=== PATIENT | male | born 1940 | race Caucasian/White ===

== ENCOUNTER 2017-07-21 17:02 | Emergency (ER) | payer MEDICARE, BC ==
[2017-07-21 22:46] LABS: ADD MAN DIFF? NO
[2017-07-21 22:48] LABS: BASOPHIL # 0.1 10^3/ul (0.0-0.1); BASOPHILS % 0.8 % (0.0-2.0); EOSINOPHILS # 0.2 10^3/ul (0.0-0.5); EOSINOPHILS % 3.3 % (0.0-7.0); HEMATOCRIT 36.7 % (42.0-52.0); LYMPHOCYTES # 2.7 10^3/ul (0.8-2.9); LYMPHOCYTES % 37.3 % (15.0-51.0); MEAN CORPUSCULAR HEMOGLOBIN 29.9 pg (29.0-33.0); MEAN CORPUSCULAR HGB CONC 32.7 g/dl (32.0-37.0); MEAN CORPUSCULAR VOLUME 91.3 fl (82.0-101.0); MEAN PLATELET VOLUME 10.9 fl (7.4-10.4); MONOCYTE # 0.7 10^3/ul (0.3-0.9); MONOCYTES % 9.5 % (0.0-11.0); NEUTROPHIL # 3.5 10^3/ul (1.6-7.5); PLATELET COUNT 151 10^3/UL (140-415); RED BLOOD COUNT 4.02 10^6/ul (4.70-6.10); RED CELL DISTRIBUTION WIDTH 13.8 % (11.5-14.5)
[2017-07-21 22:48] LABS: WHITE BLOOD COUNT 7.2 10^3/ul (4.8-10.8)
[2017-07-21 23:16] LABS: ALANINE AMINOTRANSFERASE 25 IU/L (13-69); ALBUMIN 3.8 g/dl (3.3-4.9); ALBUMIN/GLOBULIN RATIO 1.11; ALKALINE PHOSPHATASE 93 IU/L (42-121); ANION GAP 19 (8-16); ASPARTATE AMINO TRANSFERASE 20 IU/L (15-46); BLOOD UREA NITROGEN 75 mg/dl (7-20); CALCIUM 9.5 mg/dl (8.4-10.2); CARBON DIOXIDE 24 mmol/L (21-31); CHLORIDE 103 mmol/L (97-110); CREATININE 7.83 mg/dl (0.61-1.24); GLUCOSE 117 mg/dl (70-220); LIPASE 503 U/L (23-300); MAGNESIUM 2.3 mg/dl (1.7-2.5); PHOSPHORUS 6.6 mg/dl (2.5-4.9); POTASSIUM 5.5 mmol/L (3.5-5.1); SODIUM 140 mmol/L (135-144); TOTAL PROTEIN 7.2 g/dl (6.1-8.1)
[2017-07-22] MEDS: INSULIN REGULAR, HUMAN 100 UNIT/1 ML 3ML VIAL IVP (00:25)
[2017-07-22] MEDS: DEXTROSE 50% 50 ML SYRINGE IV (00:26)
[2017-07-22] MEDS: NA POLYST SULFON 15 GM/60 ML BTL PO (00:29)
[2017-07-22] MEDS: ALBUTEROL 0.083% (NEB) 2.5 MG/3 ML AMP HHN (00:30)
[2017-07-22] MEDS ORDERED: DEXTROSE 50% 50 ML SYRINGE IV (00:30)
== END 2017-07-22 01:49 | disposition home or self-care (01) ==
LOC: E/R 07-22 01:49
DX: E87.5 Hyperkalemia (principal); D64.9 Anemia, unspecified; I25.10 Atherosclerotic heart disease of native coronary artery without angina pectoris; E11.22 Type 2 diabetes mellitus with diabetic chronic kidney disease; N18.9 Chronic kidney disease, unspecified; I12.9 Hypertensive chronic kidney disease with stage 1 through stage 4 chronic kidney disease, or unspecified chronic kidney disease
CPT/HCPCS: 36415; 80053; 82962; 83690; 83735; 84100; 85025; 93005; 94664; 96374; 96375; 99284-25

== ENCOUNTER 2017-11-15 19:42 | Emergency (ER) | payer SELFPAY, BC, MEDICARE | END 2017-11-15 22:06 | disposition left against medical advice (07) | LOC: E/R 19:42 | DX: Z53.21 Procedure and treatment not carried out due to patient leaving prior to being seen by health care provider (principal) ==

== ENCOUNTER 2017-12-28 12:21 | Emergency (ER) | payer MEDICARE, BC ==
[2017-12-28 13:21] LABS: ADD MAN DIFF? NO
[2017-12-28 13:24] LABS: WHITE BLOOD COUNT 10.3 10^3/ul (4.8-10.8)
[2017-12-28 13:24] LABS: BASOPHIL # 0.1 10^3/ul (0.0-0.1); BASOPHILS % 0.5 % (0.0-2.0); EOSINOPHILS % 0.2 % (0.0-7.0); HEMATOCRIT 38.7 % (42.0-52.0); HEMOGLOBIN 12.8 g/dl (14.0-18.0); LYMPHOCYTES # 2.2 10^3/ul (0.8-2.9); LYMPHOCYTES % 20.9 % (15.0-51.0); MEAN CORPUSCULAR HGB CONC 33.1 g/dl (32.0-37.0); MEAN CORPUSCULAR VOLUME 90.6 fl (82.0-101.0); MEAN PLATELET VOLUME 10.3 fl (7.4-10.4); MONOCYTE # 0.4 10^3/ul (0.3-0.9); MONOCYTES % 4.2 % (0.0-11.0); NEUTROPHIL # 7.5 10^3/ul (1.6-7.5); PLATELET COUNT 155 10^3/UL (140-415); RED BLOOD COUNT 4.27 10^6/ul (4.70-6.10); RED CELL DISTRIBUTION WIDTH 14.9 % (11.5-14.5)
[2017-12-28 13:43] LABS: INR 0.96; PROTIME 12.9 Sec (11.9-14.9)
[2017-12-28 13:44] LABS: PARTIAL THROMBOPLASTIN TIME 28.8 Sec (23.0-35.0)
[2017-12-28 13:45] LABS: ALANINE AMINOTRANSFERASE 6 IU/L (13-69); ALBUMIN 4.3 g/dl (3.3-4.9); ALBUMIN/GLOBULIN RATIO 1.16; ALKALINE PHOSPHATASE 90 IU/L (42-121); ANION GAP 20 (8-16); ASPARTATE AMINO TRANSFERASE 36 IU/L (15-46); BLOOD UREA NITROGEN 55 mg/dl (7-20); CALCIUM 9.7 mg/dl (8.4-10.2); CARBON DIOXIDE 21 mmol/L (21-31); CHLORIDE 101 mmol/L (97-110); GLUCOSE 212 mg/dl (70-220); LIPASE 727 U/L (23-300); POTASSIUM 4.6 mmol/L (3.5-5.1); SODIUM 137 mmol/L (135-144)
[2017-12-28] MEDS: ONDANSETRON 4 MG INJ IV (13:55)
[2017-12-28] MEDS: SOD CHLORIDE 0.9% 500 ML IV (13:56)
== END 2017-12-28 16:33 | disposition home or self-care (01) ==
LOC: E/R 12:21
DX: N18.6 End stage renal disease (principal); R11.11 Vomiting without nausea; E11.9 Type 2 diabetes mellitus without complications; I25.2 Old myocardial infarction; Z79.84 Long term (current) use of oral hypoglycemic drugs; Z99.2 Dependence on renal dialysis
CPT/HCPCS: 36415; 74176; 80053; 83690; 85025; 85610; 85730; 93005; 96374; 99285-25